=== PATIENT | female | born 1985 | race African-American/Black ===

== ENCOUNTER 2017-11-16 03:45 | Emergency (ER) | payer MEDICARE, MEDICAID ==
[~2017-11-16] VITALS: Ht 160 cm; Wt 73.0 kg
[~2017-11-16 03:45] MED LIST: AMLO5TAB88 PO; ATOR20TA PO; Calcium Acetate PO; DIPH25CA83 PO; DOCU-138 PO; GLIP5TAB12 PO; LABE100T PO; LISI10TA5 PO; METO5TAB94 PO; PROAIR INH; SEVE800T8 PO; TRAM50TA3 PO; TRAZ-129 PO
[2017-11-16 03:46] VITALS: BP 130/100
== END 2017-11-16 08:57 | disposition left against medical advice (07) ==
LOC: ER 03:45
DX: Z53.21 Procedure and treatment not carried out due to patient leaving prior to being seen by health care provider (principal)

== ENCOUNTER 2018-06-08 18:33 | Emergency (ER) | payer MEDICARE, MEDICAID ==
[~2018-06-08 18:33] MED LIST changes: -LABE100T PO; +LABE100T5 PO; -TRAZ-129 PO; +TRAZ-212 PO
== END 2018-06-08 18:40 | disposition left against medical advice (07) ==
LOC: ER 18:33
DX: R10.9 Unspecified abdominal pain (principal); Z53.21 Procedure and treatment not carried out due to patient leaving prior to being seen by health care provider

== ENCOUNTER 2018-12-04 10:38 | Inpatient (IN) | payer MEDICARE, MEDICAID ==
[~2018-12-04] VITALS: Ht 142.2 cm; Wt 55.5 kg
[2018-12-04] VITALS (8 sets, daily range): BP systolic 103–150; BP diastolic 65–81
[2018-12-04] MEDS ORDERED: MORPHINE SULFATE 4 MG/ML CPJ (NOT FOR IM USE) IV ONE (12:00)
[2018-12-04 12:19] LABS: CHLORIDE 100 mEq/L (98-107)
[2018-12-04 12:23] LABS: BASOPHILS % 0.9 % (0.0-2.0); EOSINOPHILS % 0.2 % (0.0-5.0); HEMATOCRIT. 39.4 % (36.0-48.0); HEMOGLOBIN. 12.4 g/dL (12.0-16.0); MEAN CORPUSCULAR HEMOGLOBIN 30.7 pg (28.0-32.0); MEAN CORPUSCULAR VOLUME 97.8 fL (81.0-99.0); MEAN PLATELET VOLUME 8.1 fl (7.4-10.4); MONOCYTES % 5.4 % (2.0-8.0); NEUTROPHILS % 85.5 % (40.0-76.0); PLATELET 285 x1000/uL (130-400); RED BLOOD CELL COUNT 4.02 mill/uL (4.2-5.4); RED CELL DISTRIBUTION WIDTH 19.1 % (11.6-14.6)
[2018-12-04] MEDS ORDERED: HEPARIN 25,000 UNITS PREMIX 500 ML IV ONE ×3 (12:45→14:00)
[2018-12-04] MEDS ORDERED: LEVOFLOXACIN 500MG PREMIX 100 ML IV SCH (13:15)
[2018-12-04] MEDS ORDERED: CLONIDINE 0.1MG TABLET PO PRN (13:15)
[2018-12-04] MEDS ORDERED: GUAIFENESIN 200MG/10ML SUGAR FREE UDC PO PRN (13:15)
[2018-12-04] MEDS ORDERED: NA PHOS,M-B/NA PHOS,DI-BA ENEMA 118ML PR PRN (13:15)
[2018-12-04] MEDS ORDERED: DOCUSATE SODIUM 100MG CAPSULE PO PRN (13:15)
[2018-12-04] MEDS ORDERED: ACETAMINOPHEN 325MG TABLET PO PRN (13:15)
[2018-12-04] MEDS ORDERED: ENOXAPARIN 40MG/0.4ML SYR SUBCUT SCH (13:15)
[2018-12-04] MEDS ORDERED: HYDROCODONE/ACETAMINOPHEN 5/325MG TABLET PO PRN (13:15)
[2018-12-04] MEDS ORDERED: IPRATROPIUM/ALBUTEROL 0.5-3(2.5)MG/3ML NEB INH PRN (13:15)
[2018-12-04] MEDS ORDERED: HEPARIN 5000 UNITS/ML VIAL IV NR (14:00)
[2018-12-04 14:09] LABS: INR 1.2; PARTIAL THROMBOPLASTIN TIME 26.5 sec (23.4-31.0); PROTHROMBIN TIME 12.2 sec (9.1-11.1)
[2018-12-04] MEDS: MAGNESIUM/ALUMINUM HYDROXIDE/SIMETHICONE 30ML UDC PO PRN ×2 (15:01→15:31)
[2018-12-04] MEDS ORDERED: LEVOFLOXACIN 500MG PREMIX 100 ML IV NR (17:00)
[2018-12-04] MEDS ORDERED: HEPARIN BOLUS PRN aPTT 30-44 IV (17:00)
[2018-12-04] MEDS ORDERED: HEPARIN BOLUS PRN aPTT <30 IV (17:00)
[2018-12-04] MEDS ORDERED: ASPI-1159 PO (17:21)
[2018-12-04] MEDS ORDERED: CLOP75TA16 PO (17:21)
[2018-12-04] MEDS ORDERED: LORAZEPAM 2MG/ML CPJ IV NR (18:00)
[2018-12-04] MEDS: HEPARIN 25,000 UNITS PREMIX 500 ML IV SCH (18:35)
[2018-12-04] MEDS ORDERED: NITROGLYCERIN 0.4MG TABLET SL SL PRN (19:30)
[2018-12-04] MEDS: ATORVASTATIN CALCIUM 40MG TABLET PO SCH (21:30)
[2018-12-04] MEDS: METOPROLOL TARTRATE 25MG TABLET PO SCH (21:31)
[2018-12-05] VITALS (12 sets, daily range): BP systolic 91–120; BP diastolic 51–71
[2018-12-05] MEDS: NITROGLYCERIN OINT 1GM/INCH UDPKT TD SCH ×5 (00:15→23:00)
[2018-12-05] MEDS: LORAZEPAM 2MG/ML CPJ IV PRN ×3 (00:15→22:27)
[2018-12-05 02:11] LABS: CREATINE KINASE MB FRACTION 2.7 ng/mL (0.5-3.6)
[2018-12-05] MEDS: PANTOPRAZOLE 40MG DR TABLET PO SCH (06:26)
[2018-12-05 08:01] LABS: BASOPHILS % 0.9 % (0.0-2.0); EOSINOPHILS % 0.3 % (0.0-5.0); HEMATOCRIT. 35.4 % (36.0-48.0); HEMOGLOBIN. 11.2 g/dL (12.0-16.0); MEAN CORPUSCULAR HEMOGLOBIN 30.8 pg (28.0-32.0); MEAN CORPUSCULAR VOLUME 97.1 fL (81.0-99.0); MEAN PLATELET VOLUME 8.1 fl (7.4-10.4); MONOCYTES % 7.9 % (2.0-8.0); NEUTROPHILS % 73.9 % (40.0-76.0); PLATELET 254 x1000/uL (130-400); RED BLOOD CELL COUNT 3.64 mill/uL (4.2-5.4); RED CELL DISTRIBUTION WIDTH 19.2 % (11.6-14.6)
[2018-12-05 08:02] LABS: CHLORIDE 101 mEq/L (98-107)
[2018-12-05 08:10] LABS: HDL CHOLESTEROL 67 mg/dL (40-59)
[2018-12-05 08:11] LABS: LDL CHOLESTEROL 52 mg/dL (5-100)
[2018-12-05 08:12] LABS: CREATINE KINASE 74 IU/L (26-192)
[2018-12-05 08:15] LABS: CREATINE KINASE MB FRACTION 2.4 ng/mL (0.5-3.6)
[2018-12-05 08:16] LABS: T4 FREE 1.53 ng/dL (0.76-1.46)
[2018-12-05] MEDS: MORPHINE SULFATE 4 MG/ML CPJ (NOT FOR IM USE) IV PRN ×2 (09:00→20:02)
[2018-12-05] MEDS: DIPHENHYDRAMINE 50MG/ML VIAL IV PRN ×3 (09:51→20:42)
[2018-12-05] MEDS ORDERED: MAGNESIUM/ALUMINUM HYDROXIDE/SIMETHICONE 30ML UDC PO NR (13:37)
[2018-12-05] MEDS: CLOPIDOGREL 75MG TABLET PO SCH (13:50)
[2018-12-05] MEDS: METOPROLOL TARTRATE 25MG TABLET PO SCH ×2 (13:50→20:02)
[2018-12-05] MEDS: ASPIRIN 81MG EC TABLET PO SCH (13:51)
[2018-12-05] MEDS: MAGNESIUM/ALUMINUM HYDROXIDE/SIMETHICONE 30ML UDC PO PRN (13:51)
[2018-12-05 16:09] LABS: CREATINE KINASE MB FRACTION 2.4 ng/mL (0.5-3.6)
[2018-12-05] MEDS: ATORVASTATIN CALCIUM 40MG TABLET PO SCH (20:02)
[2018-12-05] MEDS: HEPARIN 25,000 UNITS PREMIX 500 ML IV SCH (22:26)
[2018-12-06] VITALS (20 sets, daily range): BP systolic 85–171; BP diastolic 48–94
[2018-12-06] MEDS: DIPHENHYDRAMINE 50MG/ML VIAL IV PRN ×3 (02:36→20:34)
[2018-12-06] MEDS: MORPHINE SULFATE 4 MG/ML CPJ (NOT FOR IM USE) IV PRN ×2 (04:00→15:34)
[2018-12-06 06:10] LABS: BASOPHILS % 2.2 % (0.0-2.0); EOSINOPHILS % 1.8 % (0.0-5.0); HEMATOCRIT. 34.3 % (36.0-48.0); LYMPHOCYTES % 29.2 % (20.0-50.0); MEAN CORPUSCULAR HEMOGLOBIN 30.7 pg (28.0-32.0); MEAN PLATELET VOLUME 8.1 fl (7.4-10.4); MONOCYTES % 9.9 % (2.0-8.0); NEUTROPHILS % 56.9 % (40.0-76.0); PLATELET 227 x1000/uL (130-400); RED BLOOD CELL COUNT 3.58 mill/uL (4.2-5.4); RED CELL DISTRIBUTION WIDTH 18.5 % (11.6-14.6)
[2018-12-06] MEDS: PANTOPRAZOLE 40MG DR TABLET PO SCH (06:42)
[2018-12-06] MEDS: NITROGLYCERIN OINT 1GM/INCH UDPKT TD SCH ×3 (06:42→17:24)
[2018-12-06] MEDS: ASPIRIN 81MG EC TABLET PO SCH (08:18)
[2018-12-06] MEDS: CLOPIDOGREL 75MG TABLET PO SCH (08:18)
[2018-12-06] MEDS: METOPROLOL TARTRATE 25MG TABLET PO SCH ×2 (08:19→20:34)
[2018-12-06] MEDS ORDERED: HEPARIN SODIUM 1,000 UNIT/1ML VIAL IV ONE (10:10)
[2018-12-06] MEDS ORDERED: MIDAZOLAM HCL 2 MG/2 ML VIAL ONE (10:11)
[2018-12-06] MEDS ORDERED: FENTANYL CITRATE/PF 50MCG/ML 2ML VIAL ONE (10:11)
[2018-12-06] MEDS ORDERED: IOHEXOL-300 100 ML BOTTLE ONE (10:45)
[2018-12-06] MEDS ORDERED: CLOPIDOGREL 75MG TABLET ONE (11:25)
[2018-12-06] MEDS ORDERED: ASPIRIN 325MG TABLET ONE (11:25)
[2018-12-06] MEDS ORDERED: ATROPINE SULFATE 1MG/10ML SYR IV PRN (12:00)
[2018-12-06] MEDS: ONDANSETRON HCL 4MG/2ML INJ IV PRN (12:42)
[2018-12-06] MEDS: MAGNESIUM/ALUMINUM HYDROXIDE/SIMETHICONE 30ML UDC PO PRN (12:43)
[2018-12-06] MEDS: DIPHENHYDRAMINE 50MG/ML VIAL IV NR ×2 (13:40→20:35)
[2018-12-06] MEDS ORDERED: LEVOFLOXACIN 250MG PREMIX 50 ML IV SCH (18:00)
[2018-12-06] MEDS: ATORVASTATIN CALCIUM 40MG TABLET PO SCH (20:34)
[2018-12-07] VITALS (13 sets, daily range): BP systolic 109–133; BP diastolic 60–74
[2018-12-07] MEDS: NITROGLYCERIN OINT 1GM/INCH UDPKT TD SCH ×3 (00:27→11:04)
[2018-12-07] MEDS: DIPHENHYDRAMINE 50MG/ML VIAL IV PRN ×2 (00:34→08:11)
[2018-12-07] MEDS: MORPHINE SULFATE 4 MG/ML CPJ (NOT FOR IM USE) IV PRN ×2 (02:43→10:30)
[2018-12-07] MEDS ORDERED: FAMOTIDINE 20MG TABLET PO SCH (06:50)
[2018-12-07 07:29] LABS: BASOPHILS % 1.4 % (0.0-2.0); EOSINOPHILS % 0.7 % (0.0-5.0); HEMATOCRIT. 38.4 % (36.0-48.0); HEMOGLOBIN. 12.2 g/dL (12.0-16.0); MEAN CORPUSCULAR HEMOGLOBIN 30.6 pg (28.0-32.0); MEAN CORPUSCULAR VOLUME 96.3 fL (81.0-99.0); MONOCYTES % 8.9 % (2.0-8.0); PLATELET 251 x1000/uL (130-400); RED BLOOD CELL COUNT 3.98 mill/uL (4.2-5.4)
[2018-12-07] MEDS: CLOPIDOGREL 75MG TABLET PO SCH (08:05)
[2018-12-07] MEDS: METOPROLOL TARTRATE 25MG TABLET PO SCH (08:05)
[2018-12-07] MEDS: ASPIRIN 81MG EC TABLET PO SCH (08:05)
[2018-12-07] MEDS ORDERED: CLOPIDOGREL 75MG TABLET PO SCH (09:00)
[2018-12-07] MEDS: ONDANSETRON HCL 4MG/2ML INJ IV PRN (10:30)
[2018-12-07] MEDS: MAGNESIUM/ALUMINUM HYDROXIDE/SIMETHICONE 30ML UDC PO PRN (15:43)
== END 2018-12-07 16:37 | disposition home or self-care (01) | DRG 901 ==
LOC: ER 11:03 → 3WST 12:42 → ENRESERV 15:06
PROVIDERS: ADMIT Internal Medicine; ATTEND Internal Medicine
PROC: 0KBQ0ZZ Excision of Right Upper Leg Muscle, Open Approach (ICD-10-PCS; principal; 2018-12-05)
PROC: 0JBM0ZZ Excision of Left Upper Leg Subcutaneous Tissue and Fascia, Open Approach (ICD-10-PCS; 2018-12-05)
PROC: 5A1D70Z Performance of Urinary Filtration, Intermittent, Less than 6 Hours Per Day (ICD-10-PCS; 2018-12-05)
PROC: 5A1D70Z Performance of Urinary Filtration, Intermittent, Less than 6 Hours Per Day (ICD-10-PCS; 2018-12-06)
PROC: 4A023N7 Measurement of Cardiac Sampling and Pressure, Left Heart, Percutaneous Approach (ICD-10-PCS; 2018-12-06)
PROC: B2111ZZ Fluoroscopy of Multiple Coronary Arteries using Low Osmolar Contrast (ICD-10-PCS; 2018-12-06)
PROC: B2151ZZ Fluoroscopy of Left Heart using Low Osmolar Contrast (ICD-10-PCS; 2018-12-06)
PROC: 027135Z Dilation of Coronary Artery, Two Arteries with Two Drug-eluting Intraluminal Devices, Percutaneous Approach (ICD-10-PCS; 2018-12-06)
PROC: B2131ZZ Fluoroscopy of Multiple Coronary Artery Bypass Grafts using Low Osmolar Contrast (ICD-10-PCS; 2018-12-06)
PROC: B2181ZZ Fluoroscopy of Left Internal Mammary Bypass Graft using Low Osmolar Contrast (ICD-10-PCS; 2018-12-06)
PROC: 5A1D70Z Performance of Urinary Filtration, Intermittent, Less than 6 Hours Per Day (ICD-10-PCS; 2018-12-07)
DX: T81.30XA Disruption of wound, unspecified, initial encounter (principal); I21.4 Non-ST elevation (NSTEMI) myocardial infarction; N18.6 End stage renal disease; T82.855A Stenosis of coronary artery stent, initial encounter; R65.10 Systemic inflammatory response syndrome (SIRS) of non-infectious origin without acute organ dysfunction; E87.2 Acidosis; E46 Unspecified protein-calorie malnutrition; I13.11 Hypertensive heart and chronic kidney disease without heart failure, with stage 5 chronic kidney disease, or end stage renal disease; I25.810 Atherosclerosis of coronary artery bypass graft(s) without angina pectoris; E11.22 Type 2 diabetes mellitus with diabetic chronic kidney disease; D64.9 Anemia, unspecified; E11.43 Type 2 diabetes mellitus with diabetic autonomic (poly)neuropathy; K31.84 Gastroparesis; E78.5 Hyperlipidemia, unspecified; E87.5 Hyperkalemia; I25.82 Chronic total occlusion of coronary artery; I44.5 Left posterior fascicular block; I49.1 Atrial premature depolarization; N94.6 Dysmenorrhea, unspecified; Y83.8 Other surgical procedures as the cause of abnormal reaction of the patient, or of later complication, without mention of misadventure at the time of the procedure; Y92.89 Other specified places as the place of occurrence of the external cause; Z79.02 Long term (current) use of antithrombotics/antiplatelets; Z79.82 Long term (current) use of aspirin; Z99.2 Dependence on renal dialysis; Z68.27 Body mass index [BMI] 27.0-27.9, adult; Z79.84 Long term (current) use of oral hypoglycemic drugs; Z79.899 Other long term (current) drug therapy; Z88.8 Allergy status to other drugs, medicaments and biological substances; Z95.1 Presence of aortocoronary bypass graft; Z91.018 Allergy to other foods
CPT/HCPCS: 36415; 71045; 73620; 80048; 80061; 82550; 82553; 82962; 83605; 83880; 84134; 84439; 84443; 84484; 85347; 92928; 92929; 93005; 93306; 93459; 93970; 99291; C1725; C1760; C1769; C1874; C1887; C1893; J1200; J1644; J1956; J2060; J2250; J2270; J2405; J3010; J7060; Q9967

== ENCOUNTER 2019-03-01 11:24 | Inpatient (IN) | payer MEDICARE, MEDICAID ==
[~2019-03-01] VITALS: Ht 142.2 cm; Wt 56.7 kg
[~2019-03-01 11:24] MED LIST changes: +ASPI-1159 PO; +CLOP75TA16 PO
[2019-03-01] MEDS ORDERED: MORPHINE SULFATE 4 MG/ML CPJ (NOT FOR IM USE) IV STA (12:26)
[2019-03-01] MEDS ORDERED: NITROGLYCERIN 0.4MG TABLET SL SL PRN (12:30)
[2019-03-01] MEDS ORDERED: METOCLOPRAMIDE HCL 10MG/2ML VIAL IV ONE (12:30)
[2019-03-01] MEDS ORDERED: ONDANSETRON HCL 4MG/2ML INJ IV ONE (12:30)
[2019-03-01] MEDS ORDERED: ASPIRIN 81MG TABLET PO ONE (12:30)
[2019-03-01 13:11] LABS: BASOPHILS % 1.2 % (0.0-2.0); EOSINOPHILS % 0.3 % (0.0-5.0); HEMATOCRIT. 42.7 % (36.0-48.0); HEMOGLOBIN. 13.8 g/dL (12.0-16.0); LYMPHOCYTES % 11.9 % (20.0-50.0); MEAN CORPUSCULAR HEMOGLOBIN 31.1 pg (28.0-32.0); MEAN CORPUSCULAR VOLUME 96.3 fL (81.0-99.0); MEAN PLATELET VOLUME 8.6 fl (7.4-10.4); MONOCYTES % 6.2 % (2.0-8.0); NEUTROPHILS % 80.4 % (40.0-76.0); PLATELET 169 x1000/uL (130-400); RED BLOOD CELL COUNT 4.43 mill/uL (4.2-5.4); RED CELL DISTRIBUTION WIDTH 16.4 % (11.6-14.6)
[2019-03-01 13:15] LABS: CHLORIDE 99 mEq/L (98-107)
[2019-03-01 13:18] LABS: INR 1.1; PROTHROMBIN TIME 11.3 sec (9.6-11.0)
[2019-03-01 13:19] LABS: HCG SCREEN NEGATIVE
[2019-03-01 13:20] LABS: ETHANOL BLOOD < 10 mg/dL
[2019-03-01] MEDS ORDERED: HYDROCODONE/ACETAMINOPHEN 10/325MG TABLET PO PRN (15:45)
[2019-03-01] MEDS ORDERED: HYDRALAZINE 20MG/ML VIAL IV PRN (15:45)
[2019-03-01] MEDS ORDERED: GUAIFENESIN 200MG/10ML SUGAR FREE UDC PO PRN (15:45)
[2019-03-01] MEDS ORDERED: ONDANSETRON HCL 4MG/2ML INJ IV PRN (15:45)
[2019-03-01] MEDS ORDERED: ENOXAPARIN 40MG/0.4ML SYR SUBCUT SCH (15:45)
[2019-03-01] MEDS ORDERED: DOCUSATE SODIUM 100MG CAPSULE PO PRN (15:45)
[2019-03-01] MEDS ORDERED: IPRATROPIUM/ALBUTEROL 0.5-3(2.5)MG/3ML NEB INH PRN (15:45)
[2019-03-01] MEDS ORDERED: DEXTROSE 50% WATER 50ML SYRINGE IV PRN (15:45)
[2019-03-01] MEDS ORDERED: CLONIDINE 0.1MG TABLET PO PRN (15:45)
[2019-03-01] MEDS ORDERED: LORAZEPAM 2MG/ML CPJ IV PRN (15:45)
[2019-03-01] MEDS ORDERED: MAGNESIUM/ALUMINUM HYDROXIDE/SIMETHICONE 30ML UDC PO PRN (15:45)
[2019-03-01] MEDS ORDERED: ACETAMINOPHEN 325MG TABLET PO PRN (15:45)
[2019-03-01 17:30] VITALS: BP 123/61
[2019-03-01] MEDS: INSULIN LISPRO 100 UNITS/ML SUBCUT SCH ×2 (17:46→21:00)
[2019-03-01 17:52] VITALS: BP 123/61
[2019-03-01] MEDS: MORPHINE SULFATE 4 MG/ML CPJ (NOT FOR IM USE) IV PRN ×2 (18:18→23:51)
[2019-03-01 20:00] VITALS: BP 122/63
[2019-03-01] MEDS ORDERED: VANCOMYCIN 1 G PREMIX 200 ML IV SCH (20:00)
[2019-03-01] MEDS: BLOOD SUGAR DIAGNOSTIC STRIP TEST SCH (20:33)
[2019-03-01] MEDS: ENOXAPARIN 30MG/0.3ML SYR SUBCUT SCH (20:34)
[2019-03-01] MEDS: SODIUM CHLORIDE 0.9% INJ 3ML FLUSH IVF SCH (20:35)
[2019-03-02] VITALS (7 sets, daily range): BP systolic 118–161; BP diastolic 62–88
[2019-03-02 00:24] LABS: CREATINE KINASE MB FRACTION 2.4 ng/mL (0.5-3.6)
[2019-03-02] MEDS: DIPHENHYDRAMINE 50MG/ML VIAL IV PRN ×3 (03:19→22:26)
[2019-03-02] MEDS: MORPHINE SULFATE 4 MG/ML CPJ (NOT FOR IM USE) IV PRN ×4 (04:48→21:12)
[2019-03-02] MEDS: SODIUM CHLORIDE 0.9% INJ 3ML FLUSH IVF SCH ×3 (06:06→22:19)
[2019-03-02] MEDS: BLOOD SUGAR DIAGNOSTIC STRIP TEST SCH ×5 (06:20→21:20)
[2019-03-02] MEDS: INSULIN LISPRO 100 UNITS/ML SUBCUT SCH ×5 (06:20→21:00)
[2019-03-02 06:55] LABS: CHLORIDE 103 mEq/L (98-107)
[2019-03-02 07:13] LABS: BASOPHILS % 1.5 % (0.0-2.0); CREATINE KINASE 55 IU/L (26-192); EOSINOPHILS % 1.4 % (0.0-5.0); HEMATOCRIT. 39.5 % (36.0-48.0); HEMOGLOBIN. 12.6 g/dL (12.0-16.0); LYMPHOCYTES % 29.2 % (20.0-50.0); MEAN CORPUSCULAR HEMOGLOBIN 31.1 pg (28.0-32.0); MEAN CORPUSCULAR VOLUME 97.2 fL (81.0-99.0); MEAN PLATELET VOLUME 8.8 fl (7.4-10.4); NEUTROPHILS % 56.9 % (40.0-76.0); PLATELET 142 x1000/uL (130-400); RED BLOOD CELL COUNT 4.06 mill/uL (4.2-5.4); RED CELL DISTRIBUTION WIDTH 16.8 % (11.6-14.6); T4 FREE 1.27 ng/dL (0.76-1.46)
[2019-03-02 07:16] LABS: CREATINE KINASE MB FRACTION 1.9 ng/mL (0.5-3.6)
[2019-03-02] MEDS ORDERED: REGADENOSON 0.4 MG/5 ML IV ONE (08:30)
[2019-03-02] MEDS ORDERED: ASPIRIN 81MG EC TABLET PO SCH (09:00)
[2019-03-02] MEDS: CLOPIDOGREL 75MG TABLET PO SCH (09:41)
[2019-03-02 10:12] LABS: T4 FREE 1.32 ng/dL (0.76-1.46)
[2019-03-02] MEDS ORDERED: VANCOMYCIN 500 MG PREMIX 100 ML IV NR (12:00)
[2019-03-02] MEDS: SODIUM HYPOCHLORITE 0.125% 473ML SOLUTION TOP SCH (12:51)
[2019-03-02 15:06] LABS: CREATINE KINASE MB FRACTION 2.1 ng/mL (0.5-3.6)
[2019-03-02] MEDS ORDERED: METOCLOPRAMIDE HCL 10MG/2ML VIAL IV PRN (22:00)
[2019-03-02] MEDS: ENOXAPARIN 30MG/0.3ML SYR SUBCUT SCH (22:19)
[2019-03-03] VITALS: BP 144/76
[2019-03-03] MEDS: DIPHENHYDRAMINE 50MG/ML VIAL IV PRN ×3 (03:43→19:36)
[2019-03-03 04:00] VITALS: BP 154/84
[2019-03-03] MEDS: METOCLOPRAMIDE HCL 10MG/2ML VIAL IV PRN ×2 (05:37→12:08)
[2019-03-03] MEDS: MORPHINE SULFATE 4 MG/ML CPJ (NOT FOR IM USE) IV PRN ×2 (05:38→12:10)
[2019-03-03 06:06] LABS: BASOPHILS % 1.5 % (0.0-2.0); EOSINOPHILS % 1.4 % (0.0-5.0); HEMATOCRIT. 42.8 % (36.0-48.0); HEMOGLOBIN. 13.8 g/dL (12.0-16.0); LYMPHOCYTES % 27.2 % (20.0-50.0); MEAN CORPUSCULAR HEMOGLOBIN 31.1 pg (28.0-32.0); MEAN CORPUSCULAR VOLUME 96.5 fL (81.0-99.0); MEAN PLATELET VOLUME 8.9 fl (7.4-10.4); MONOCYTES % 10.1 % (2.0-8.0); NEUTROPHILS % 59.8 % (40.0-76.0); PLATELET 149 x1000/uL (130-400); RED BLOOD CELL COUNT 4.44 mill/uL (4.2-5.4); RED CELL DISTRIBUTION WIDTH 16.8 % (11.6-14.6)
[2019-03-03 06:48] LABS: CREATINE KINASE MB FRACTION 2.3 ng/mL (0.5-3.6)
[2019-03-03] MEDS ORDERED: LIDOCAINE HCL 1% 20ML VIAL (Pyxis) INJ ONE (07:30)
[2019-03-03] MEDS ORDERED: SODIUM BICARBONATE 4% (2.4MEQ) 5ML VIAL IV ONE (07:30)
[2019-03-03] MEDS: BLOOD SUGAR DIAGNOSTIC STRIP TEST SCH ×4 (07:40→21:00)
[2019-03-03 08:00] VITALS: BP 175/89
[2019-03-03] MEDS: INSULIN LISPRO 100 UNITS/ML SUBCUT SCH ×4 (08:10→21:00)
[2019-03-03] MEDS: SODIUM HYPOCHLORITE 0.125% 473ML SOLUTION TOP SCH (09:00)
[2019-03-03] MEDS ORDERED: IOHEXOL-350 100 ML BOTTLE ONE (09:47)
[2019-03-03] MEDS ORDERED: REGADENOSON 0.4 MG/5 ML IV ONE (10:27)
[2019-03-03 12:00] VITALS: BP 160/77
[2019-03-03] MEDS: ASPIRIN 81MG TABLET PO SCH (12:33)
[2019-03-03] MEDS: CLOPIDOGREL 75MG TABLET PO SCH (12:33)
[2019-03-03] MEDS: SODIUM CHLORIDE 0.9% INJ 3ML FLUSH IVF SCH ×2 (14:00→22:10)
[2019-03-03 16:00] VITALS: BP 155/73
[2019-03-03] MEDS ORDERED: BISACODYL 5MG TABLET PO PRN (18:15)
[2019-03-03 20:00] VITALS: BP 146/81
[2019-03-03] MEDS ORDERED: VANCOMYCIN 500 MG PREMIX 100 ML IV SCH (21:00)
[2019-03-03] MEDS: ENOXAPARIN 30MG/0.3ML SYR SUBCUT SCH (22:09)
[2019-03-04] VITALS (7 sets, daily range): BP systolic 125–143; BP diastolic 69–77
[2019-03-04] MEDS: DIPHENHYDRAMINE 50MG/ML VIAL IV PRN ×3 (01:54→18:11)
[2019-03-04] MEDS: SODIUM CHLORIDE 0.9% INJ 3ML FLUSH IVF SCH ×2 (05:19→13:56)
[2019-03-04] MEDS: BLOOD SUGAR DIAGNOSTIC STRIP TEST SCH ×3 (05:19→17:12)
[2019-03-04] MEDS: MORPHINE SULFATE 4 MG/ML CPJ (NOT FOR IM USE) IV PRN ×3 (05:19→16:24)
[2019-03-04] MEDS: INSULIN LISPRO 100 UNITS/ML SUBCUT SCH ×2 (08:10→13:10)
[2019-03-04] MEDS: CLOPIDOGREL 75MG TABLET PO SCH (09:33)
[2019-03-04] MEDS: ASPIRIN 81MG TABLET PO SCH (09:33)
[2019-03-04] MEDS: SODIUM HYPOCHLORITE 0.125% 473ML SOLUTION TOP SCH (09:40)
[2019-03-04] MEDS ORDERED: DOCUSATE SODIUM 250MG CAPSULE PO SCH (13:00)
[2019-03-04] MEDS: METOCLOPRAMIDE HCL 10MG/2ML VIAL IV PRN (13:56)
== END 2019-03-04 20:36 | disposition home or self-care (01) | DRG 862 ==
LOC: ER 11:24 → 8WST 15:49 → EDBEDREQTM 15:52 → EDBEDREQ 15:52 → ENRESERV 16:03 → 7WST 03-02 17:00
PROVIDERS: ADMIT Internal Medicine; ATTEND Internal Medicine
PROC: 5A1D70Z Performance of Urinary Filtration, Intermittent, Less than 6 Hours Per Day (ICD-10-PCS; principal; 2019-03-01)
PROC: 5A1D70Z Performance of Urinary Filtration, Intermittent, Less than 6 Hours Per Day (ICD-10-PCS; 2019-03-03)
PROC: 02H633Z Insertion of Infusion Device into Right Atrium, Percutaneous Approach (ICD-10-PCS; 2019-03-03)
PROC: B2141ZZ Fluoroscopy of Right Heart using Low Osmolar Contrast (ICD-10-PCS; 2019-03-03)
PROC: B54MZZA Ultrasonography of Right Upper Extremity Veins, Guidance (ICD-10-PCS; 2019-03-03)
PROC: 5A1D70Z Performance of Urinary Filtration, Intermittent, Less than 6 Hours Per Day (ICD-10-PCS; 2019-03-04)
DX: T81.49XA Infection following a procedure, other surgical site, initial encounter (principal); N18.6 End stage renal disease; R18.8 Other ascites; T81.31XA Disruption of external operation (surgical) wound, not elsewhere classified, initial encounter; I13.11 Hypertensive heart and chronic kidney disease without heart failure, with stage 5 chronic kidney disease, or end stage renal disease; Z99.2 Dependence on renal dialysis; E11.43 Type 2 diabetes mellitus with diabetic autonomic (poly)neuropathy; E11.22 Type 2 diabetes mellitus with diabetic chronic kidney disease; D64.9 Anemia, unspecified; K31.84 Gastroparesis; E78.5 Hyperlipidemia, unspecified; I25.10 Atherosclerotic heart disease of native coronary artery without angina pectoris; K59.00 Constipation, unspecified; K80.20 Calculus of gallbladder without cholecystitis without obstruction; Y83.8 Other surgical procedures as the cause of abnormal reaction of the patient, or of later complication, without mention of misadventure at the time of the procedure; Z79.899 Other long term (current) drug therapy; I25.2 Old myocardial infarction; Z95.1 Presence of aortocoronary bypass graft; Z98.61 Coronary angioplasty status; Z79.84 Long term (current) use of oral hypoglycemic drugs; Z79.82 Long term (current) use of aspirin; Y92.89 Other specified places as the place of occurrence of the external cause
CPT/HCPCS: 36415; 36569; 36573; 71045; 71275; 74176; 78452; 80048; 80061; 80202; 80320; 82550; 82553; 82962; 83036; 83880; 84134; 84439; 84443; 84484; 84703; 85379; 86850; 86900; 87070; 87075; 87077; 87186; 93005; 93017; 93306; 93970; 96374; 96375; 99285; A9500; C1725; J1200; J1650; J2270; J2405; J2765; J2785; J3370; J3490; J7050; Q9967; G0480